=== PATIENT | female | born 1965 | race Caucasian/White ===

== ENCOUNTER 2016-02-21 13:18 | Emergency (ER) | payer BC ==
[~2016-02-21] VITALS: Wt 50.0 kg
[~2016-02-21 13:18] MED LIST: ALPR0.5T PO; BACTDS PO; HYDR-3498 PO
--- NOTE | 2016-02-21 15:08 | EN ---
Date/Time of Note Date/Time of Note DATE: 02/21/16 TIME: 15:07 ER Progress Note 51-year-old female with no significant past medical history presents the ED complaining of a productive cough that started 3 days ago. Patient states that she has shortness of breath and was noted to have wheezing on physical exam. Patient could benefit from a breathing treatment. Patient was seen here in [facility] however will be sent to ED2 to for further treatment and evaluation. YOU BRYANT PA-C Feb 21, 2016 15:08
[2016-02-21] MEDS ORDERED: predniSONE 20 MG TAB PO STA (16:10)
[2016-02-21] MEDS ORDERED: IPRATROPIUM (NEB) 0.5 MG/2.5 ML AMP NEB STA ×2 (16:10→17:19)
[2016-02-21] MEDS ORDERED: ALBUTEROL 0.5% (NEB) 2.5 MG/0.5 ML AMP NEB STA ×2 (16:10→17:19)
[2016-02-21] MEDS ORDERED: ACETAMINOPHEN 325 MG TAB PO ONE (16:30)
--- NOTE | 2016-02-21 16:53 | ERD ---
ER Documentation Chief Complaint Date/Time DATE: 02/21/16 TIME: 16:49 Chief Complaint COUGH WITH PHLEGM X3 DAYS, NO FEVER HPI The patient is a 51-year-old female with a 3 day history of productive cough of yellowish greenish sputum and shortness of breath. She states that she has a history of COPD, however does not take any medications. She denies any other symptoms including sore throat, ear pain, headache, chest pain, dysuria, flank pain, dizziness, lightheadedness, or any other symptoms. She smokes 1 pack per day. ROS All systems reviewed and are negative except as per history of present illness. Medications Home Meds Active Scripts Albuterol Sulfate* (Ventolin HFA*) 18 Gm Hfa.aer.ad, 2 PUFF INHALATION Q4H, #1 INHALER Prov:RADHA PIZANO, [employer] 02/21/16 Prednisone* (Prednisone*) 20 Mg Tab, 40 MG PO DAILY for 4 Days, TAB Prov:RADHA PIZANO, [employer] 02/21/16 Sulfamethoxazole-Trimethoprim* (Bactrim* DS) 800-160 Mg Tab, 1 TAB PO BID, #20 TAB Prov:PRATHERLIZ V. [employer] 06/25/15 Hydrocodone Bit-Acetaminophen* ([place]*) 5-325 Mg Tab, 1 TAB PO Q4H Y for PAIN LEVEL 6-10, #20 TAB Prov:JORDAN VILLALTA 02/20/15 Alprazolam* (Xanax*) 0.5 Mg Tab, 0.5 MG PO Q8H Y for ANXIETY, #20 TAB Prov:JORDAN VILLALTA 02/20/15 Allergies Allergies: Coded Allergies: Penicillins (Verified Allergy, Mild, 02/21/16) codeine (Verified Allergy, Mild, itching, 02/21/16) ibuprofen (Verified Allergy, Mild, 02/21/16) ketorolac (Verified Allergy, Mild, 02/21/16) PMhx/Soc History of Surgery: Yes (Cardiac Stent) Anesthesia Reaction: No Hx Neurological Disorder: No Hx Respiratory Disorders: No Hx Cardiac Disorders: Yes (HTN) Hx Psychiatric Problems: No Hx Miscellaneous Medical Probl: Yes (Pt reports she has "more problems" but unable to elaborate. ) Hx Alcohol Use: Yes Hx Substance Use: No Hx Tobacco Use: Yes (4-5 cigs/day) Smoking Status: Current every day smoker Physical Exam Vitals Vital Signs Date Time Temp Pulse Resp B/P Pulse Ox O2 Delivery O2 Flow Rate FiO2 02/21/16 17:58 97 22 91 21 02/21/16 17:50 96 22 140/75 92 Room Air 02/21/16 16:29 90 22 94 21 02/21/16 16:16 90 30 100 Room Air 02/21/16 13:38 97.9 83 18 175/84 98 Physical Exam INITIAL VITAL SIGNS: Reviewed by me, afebrile, no tachycardia, oximetry 98% on room air. GENERAL: Alert. Well developed and well nourished. Mild respiratory distress HEAD: Head is normocephalic. Atraumatic. EYES: EOMI. PERRL. No scleral icterus. No conjunctival injection. ENT: External ears, nose, and mouth normal. Ear canals clear and without erythema or purulence. Tympanic membranes normal, positive light reflex, no erythema, no effusion. Nasal passages patent and without rhinorrhea. Moist mucous membranes. NECK: Supple. Full range of motion. Trachea midline. No meningismus. No lymphadenopathy. RESPIRATORY: No tachypnea. Moderate expiratory wheezes and rhonchi throughout. CV: Regular rate and rhythm. No murmurs, rubs, or gallops ABDOMEN: Soft, non-distended, non-tender. No guarding. No rebound. No masses. Bowel sounds normal in all quadrants. BACK: No CVA tenderness. Full ROM. EXTREMITIES: No obvious deformity. No clubbing or cyanosis. No edema. SKIN: Warm and dry. No diaphoresis. No obvious rashes or lesions. NEUROLOGIC: Alert and oriented x 3. Appropriate. Face is symmetric. Speech is normal. Moves all extremities equally. Results 24 hrs Current Medications Medications (Trade) Dose Ordered Sig/Mariya Route PRN Reason Start Time Stop Time Status Last Admin Dose Admin Albuterol (Proventil 0.5% (Neb)) 5 mg ONCE STAT NEB 02/21/16 16:10 02/21/16 16:12 DC 02/21/16 16:28 Ipratropium [place] (Atrovent 0.02% (Neb)) 0.5 mg ONCE STAT NEB 02/21/16 16:10 02/21/16 16:12 DC 02/21/16 16:28 Prednisone (Prednisone) 40 mg ONCE STAT PO 02/21/16 16:10 02/21/16 16:12 DC 02/21/16 16:32 Acetaminophen (Tylenol Tab) 650 mg ONCE ONCE PO 02/21/16 16:30 02/21/16 16:31 DC 02/21/16 16:32 Albuterol (Proventil 0.5% (Neb)) 5 mg ONCE STAT NEB 02/21/16 17:19 02/21/16 17:20 DC 02/21/16 17:57 Ipratropium [place] (Atrovent 0.02% (Neb)) 0.5 mg ONCE STAT NEB 02/21/16 17:19 02/21/16 17:20 DC 02/21/16 17:57 Diphenhydramine HCl (Benadryl) 25 mg ONCE ONCE PO 02/21/16 17:30 02/21/16 17:31 DC 02/21/16 17:43 PROCEDURE: XR Chest 1 View. CLINICAL INDICATION: Cough TECHNIQUE: AP view of the chest were obtained. COMPARISON: October 06, 2015 FINDINGS: The cardiomediastinal silhouette is within normal limits. Calcified granulomatous disease in both lungs appears stable. The lungs are hyperexpanded. No consolidations are identified. No pneumothorax is seen. Osseous structures are intact. IMPRESSION: Hyperexpanded lungs. Stable calcified Calcified granulomatous disease in both lungs. RPTAT: AA .Spike Fontana MD, MD Date Time Electronically viewed and signed by .Spike Fontana MD, MD on 02/21/2016 17:45 Procedures/MDM Nursing Notes Reviewed Previous Medical Records requested via [facility]. EMERGENCY DEPARTMENT COURSE / MEDICAL DECISION MAKING: The patient comes to the ED secondary to productive cough and shortness of breath 3 days. Differential diagnosis upon initial evaluation includes but is not limited to: Pneumonia, sepsis, meningitis, COPD exacerbation, pulmonary embolism, heart failure, and others. The case was discussed with supervising physician Dr. Leon. The patient was treated with DuoNeb and prednisone 40 mg p.o. On reassessment patient stated that she felt improvement, but still a little difficulty breathing. Patient was reassessed after her breathing treatment, her lung sounds improved however faint wheezes and some rhonchi are still heard. Oximetry on room air 94%. Will give another DuoNeb and reassess. Patient asking for something for her shaking and requesting Benadryl. Benadryl 25 mg p.o. was given. On reassessment after the second breathing treatment and the Benadryl, the patient reported feeling much better and stated that she wished to be discharged home at this time. She denied any respiratory distress or difficulty breathing. On reassessment, oximetry was between 98-91%, no tachycardia, no evidence of respiratory distress or increased respiratory effort , her wheezes had resolved, she still had bilateral rhonchi, she denied any chest pain, dizziness, lightheadedness, or any other symptoms. Given this, along with the chest x-ray findings, I have low suspicion for pneumonia, congestive heart failure, sepsis, meningitis, and pulmonary embolism. At this time, her history, physical exam, and x-ray are most consistent with COPD exacerbation secondary to upper respiratory tract infection which is likely viral. Chest x-ray as read by radiologist: IMPRESSION: Hyperexpanded lungs. Stable calcified Calcified granulomatous disease in both lungs. Final impression: 1. COPD exacerbation 2. Upper respiratory infection, likely viral Based on patient's history of present illness and physical examination the decision was made to discharge. The patient was re-evaluated after ED treatment and stabilizing measures, and symptoms have improved. There is no evidence of life threatening injuries or illnesses at this time. On re-examination, patient resting in no distress, stable vital signs, reports feeling better and safe for discharge with outpatient follow up with PMD in 1-2 days. Patient given return precautions. Patient's blood pressure was elevated but appears stable without evidence of hypertensive emergency, end organ damage, chest pain or shortness of breath. The patient was counseled about the risks of untreated hypertension and urged to pursue outpatient monitoring and therapy in 2-3 days with their primary care physician. Prescriptions Prednisone Albuterol Departure Diagnosis: Primary Impression: COPD exacerbation Additional Impression: Upper respiratory infection URI type: unspecified viral URI Qualified Code: J06.9 - Viral upper respiratory tract infection Condition: Stable RADHA PIZANO NP Feb 21, 2016 16:53
[2016-02-21] MEDS ORDERED: DIPHENHYDRAMINE 25 MG CAP PO ONE (17:30)
--- NOTE | 2016-02-21 17:46 | RADRPT ---
PROCEDURE: XR Chest 1 View. CLINICAL INDICATION: Cough TECHNIQUE: AP view of the chest were obtained. COMPARISON: October 06, 2015 FINDINGS: The cardiomediastinal silhouette is within normal limits. Calcified granulomatous disease in both isaias ngs appears stable. The lungs are hyperexpanded. No consolidations are identified. No pneumothorax is seen. Osseous structures are intact. IMPRESSION: Hyperexpanded lungs. Stable calcified Calcified granulomatous disease in both lungs. RPTAT: AA .Spike Fontana MD, Date Time Electronically viewed and signed by .Spike Fontana MD, on 02/21/2016 17:45 .P/
[2016-02-21 17:50] VITALS: BP 140/75; PULSE 96; RESP 22
[2016-02-21] MEDS ORDERED: PRED20TA PO (18:56)
[2016-02-21] MEDS ORDERED: ALBU18HF INHALATION (18:56)
== END 2016-02-21 19:06 | disposition home or self-care (01) ==
LOC: FTE 13:18
DX: J44.1 Chronic obstructive pulmonary disease with (acute) exacerbation (principal); J06.9 Acute upper respiratory infection, unspecified; I10 Essential (primary) hypertension; F17.210 Nicotine dependence, cigarettes, uncomplicated; Z95.5 Presence of coronary angioplasty implant and graft
CPT/HCPCS: 71010; 94640; 94664; J7512; Z7502; Z7610